=== PATIENT | male | born 1985 | race Caucasian/White ===

== ENCOUNTER 2019-11-25 16:51 | Emergency (ER) | payer OTHER ==
[~2019-11-25] VITALS: Ht 172.7 cm; Wt 81.6 kg
[2019-11-25 17:30] VITALS: BP 112/65
[2019-11-25] MEDS ORDERED: NACL 0.9% 1,000 ML IV ONE (17:55)
[2019-11-25] MEDS ORDERED: MORPHINE SULFATE 4 MG/ML SYR IVP ONE (17:55)
[2019-11-25 18:32] LABS: BASOPHILS # (AUTO) 0.1 K/uL (0.00-0.22); BASOPHILS % (AUTO) 0.6 % (0.0-2.0); EOSINOPHILS # (AUTO) 0.1 K/uL (0-0.4); EOSINOPHILS % (AUTO) 1.2 % (0.0-4.0); HEMATOCRIT 43.9 % (36-52); HEMOGLOBIN 14.3 g/dL (12.0-18.0); LYMPHOCYTES # (AUTO) 3.1 K/uL (2.0-11.5); LYMPHOCYTES % (AUTO) 35.1 % (20.5-51.1); MEAN CORPUSCULAR HEMOGLOBIN 30 pg (27-31); MEAN CORPUSCULAR HGB CONC 33 g/dL (33-37); MEAN CORPUSCULAR VOLUME 90.2 fL (80-94); MONOCYTES # (AUTO) 0.6 K/uL (0.8-1.0); NEUTROPHILS % (AUTO) 56.1 % (42.2-75.2); PLATELET COUNT (AUTO) 261 K/uL (140-450); RED BLOOD CELL COUNT(AUTO) 4.86 MIL/uL (4.20-6.10); RED CELL DISTRIBUTION WIDTH 13.4 % (11.6-13.7); WHITE BLOOD COUNT (AUTO) 8.9 K/uL (4.8-10.8)
[2019-11-25] MEDS ORDERED: KETOROLAC 30 MG/ML VIAL IVP ONE (19:00)
[2019-11-25 19:21] LABS: APPEARANCE,URINE CLEAR (CLEAR); BILIRUBIN,URINE NEGATIVE (NEGATIVE); BLOOD, URINE 3+ (NEGATIVE); COLOR,URINE YELLOW (YELLOW); LEUKOCYTE ESTERASE ,URINE TRACE (NEGATIVE); NITRITE, URINE POSITIVE (NEGATIVE); PH,URINE 6.5 (5.0-9.0); UGLUCOSE NEGATIVE (NEGATIVE)
[2019-11-25 19:39] LABS: ALBUMIN 4.4 g/dL (3.4-5.0); ANION GAP 13.1 (8-16); CARBON DIOXIDE 29.7 mmol/L (21-32); CREATININE 1.4 mg/dL (0.6-1.3); POTASSIUM 3.8 mmol/L (3.5-5.1); TOTAL BILIRUBIN 0.3 mg/dL (0.0-1.0)
[2019-11-25 19:49] LABS: RBC,URINE 80-100 /HPF (0-5); WBC,URINE 0-5 /HPF (0-5)
[2019-11-25] MEDS ORDERED: cefTRIAXone 1,000 MG VIAL ONE (20:02)
[2019-11-25] MEDS ORDERED: HYDROcodone/APAP 5/325 MG 1 TAB TAB PO ONE (21:40)
[2019-11-25 21:50] VITALS: BP 114/76
== END 2019-11-25 21:50 | disposition home or self-care (01) ==
LOC: MED 16:51 → EDBD 16:51 → MED 21:50
DX: N20.0 Calculus of kidney (principal)
CPT/HCPCS: 36415; 74176; 80053; 81001; 85025; 87086; 96365; 96366; 96375; 99284; J0696; J1885; J2270; J7030

== ENCOUNTER 2019-11-29 10:52 | Emergency (ER) | payer OTHER, SELFPAY ==
[~2019-11-29] VITALS: Ht 180.3 cm; Wt 86.2 kg
[2019-11-29 11:00] VITALS: BP 116/72
--- NOTE | 2019-11-29 11:09 | NUR ---
PT AMB TO BED 10.
--- NOTE | 2019-11-29 11:15 | NUR ---
C/O R SIDE FLANK/LOWER BACK PAIN 05/06 STARTING APPROX 8 DAYS AGO. PT STATES HE WAS SEEN AT [facility] AND [facility] OVER THE LAST WEEK DUE TO THE PAIN. PT WAS TOLD HE HAS A RENAL STONE ON THE R KIDNEY. PT STATES PAIN HAS BEEN INCREASINGLY WORSE. C/O INTERMITTENT DYSURIA/DRIBBLING URINATION & NAUSEA. TENDERNESS TO PALPATION ON RLQ/R FLANK. DENIES FEVER, VOMITING, HEMATURIA. BED IN LOW POSITION, SIDE RAIL UP X1.
--- NOTE | 2019-11-29 11:30 | NUR ---
PT AMBULATED TO RESTROOM WITH STEADY GAIT
[2019-11-29] MEDS ORDERED: KETOROLAC 30 MG/ML VIAL IM/IVP ONE (11:40)
[2019-11-29] MEDS ORDERED: NACL 0.9% 1,000 ML IV ONE (11:40)
[2019-11-29 12:05] LABS: BASOPHILS # (AUTO) 0.1 K/uL (0.00-0.22); BASOPHILS % (AUTO) 0.9 % (0.0-2.0); EOSINOPHILS # (AUTO) 0.1 K/uL (0-0.4); EOSINOPHILS % (AUTO) 1.7 % (0.0-4.0); HEMATOCRIT 41.8 % (36-52); LYMPHOCYTES # (AUTO) 2.2 K/uL (2.0-11.5); LYMPHOCYTES % (AUTO) 34.1 % (20.5-51.1); MEAN CORPUSCULAR HEMOGLOBIN 30 pg (27-31); MEAN CORPUSCULAR HGB CONC 34 g/dL (33-37); MEAN CORPUSCULAR VOLUME 89.7 fL (80-94); MONOCYTES # (AUTO) 0.5 K/uL (0.8-1.0); MONOCYTES % (AUTO) 7.6 % (1.7-9.3); NEUTROPHILS # (AUTO) 3.7 K/uL (1.8-7.7); NEUTROPHILS % (AUTO) 55.7 % (42.2-75.2); PLATELET COUNT (AUTO) 213 K/uL (140-450); RED BLOOD CELL COUNT(AUTO) 4.66 MIL/uL (4.20-6.10); RED CELL DISTRIBUTION WIDTH 13.6 % (11.6-13.7); WHITE BLOOD COUNT (AUTO) 6.6 K/uL (4.8-10.8)
[2019-11-29 12:07] LABS: APPEARANCE,URINE CLEAR (CLEAR); BILIRUBIN,URINE NEGATIVE (NEGATIVE); BLOOD, URINE 2+ (NEGATIVE); COLOR,URINE YELLOW (YELLOW); LEUKOCYTE ESTERASE ,URINE NEGATIVE (NEGATIVE); NITRITE, URINE NEGATIVE (NEGATIVE); PH,URINE 5.5 (5.0-9.0); UGLUCOSE NEGATIVE (NEGATIVE)
[2019-11-29 12:17] LABS: WBC,URINE 0-5 /HPF (0-5)
[2019-11-29 12:37] LABS: ANION GAP 11.6 (8-16); CARBON DIOXIDE 29.4 mmol/L (21-32); CREATININE 1.2 mg/dL (0.6-1.3); TOTAL BILIRUBIN 0.3 mg/dL (0.0-1.0)
[2019-11-29] MEDS ORDERED: CIPR500T4 PO (13:45)
[2019-11-29] MEDS ORDERED: IBUP-2213 PO (13:45)
[2019-11-29] MEDS ORDERED: HYDR-5122 PO (13:45)
[2019-11-29] MEDS ORDERED: ONDA-24 PO (13:45)
[2019-11-29] MEDS ORDERED: TAMS0.4C96 PO (13:45)
--- NOTE | 2019-11-29 14:58 | NUR ---
REGULAR DIET ORDERED FOR PATIENT, OK PER DR. MARRUFO
--- NOTE | 2019-11-29 15:00 | NUR ---
covid swab collected and walked to lab
--- NOTE | 2019-11-29 16:04 | NUR ---
PT RESTING IN BED, EATING LUNCH. NO NEW NEEDS AT THIS TIME.
--- NOTE | 2019-11-29 16:30 | NUR ---
PT ASKING IF HE CAN TAKE HIS HOME PAIN MEDICATION (NORCO [phone]). OKAY'D PER DR. MARRUFO. PT TOOK 1 TABLET
--- NOTE | 2019-11-29 17:11 | NUR ---
PT AMBULATED TO RESTROOM WITH STEADY GAIT.
--- NOTE | 2019-11-29 18:29 | NUR ---
PT INFORMED OF TRANSFER TO [facility]. ORDERED DINNER TRAY FOR PT AT THIS TIME.
--- NOTE | 2019-11-29 18:41 | NUR ---
CALLED REPORT TO SHERYL WELLINGTON RN @ [facility]. PT WILL BE GOING ROOM 310.
--- NOTE | 2019-11-29 18:42 | NUR ---
PT EATING DINNER AT BEDSIDE.
[2019-11-29 19:03] VITALS: BP 121/73
--- NOTE | 2019-11-29 19:04 | NUR ---
Patient to be transferred to [facility] AT THIS TIME. Is being transferred due to INSURANCE. Receiving facility has accepting physician and available space. ER physician has signed transfer form. Patient or responsible constitution party has agreed to transfer and signed form. Patient belongings inventoried and will be sent with patient. Copy of nursing notes, lab reports, EKG, Physicians Orders and X-rays to be sent with patient. Report called to LESLEY SAUCEDO at receiving facility.
== END 2019-11-29 19:03 | disposition short-term general hospital (02) ==
LOC: MED 10:52 → EEVIPCON 10:52 → MED 19:03
DX: Z03.818 Encounter for observation for suspected exposure to other biological agents ruled out (principal); N20.1 Calculus of ureter; Z79.899 Other long term (current) drug therapy
CPT/HCPCS: 36415; 71045; 80053; 81001; 85025; 87086; 87635; 93005; 96374; 99285; J1885; J7030; Q0092; 96372